=== PATIENT | male | born 1950 | race Caucasian/White ===

== ENCOUNTER 2017-09-19 01:51 | Emergency (ER) | payer BC, MEDICARE ==
[~2017-09-19] VITALS: Ht 165.1 cm; Wt 128.0 kg
[2017-09-19 02:23] LABS: AMORPHOUS SEDIMENT, URINE RARE; BILIRUBIN, URINE NEG (NEG); BLOOD, URINE MOD (NEG); GLUCOSE,URINE TRACE mg/dL (NEG); KETONE, URINE NEG (NEG); MUCUS URINE FEW /lpf (OCC); NITRITE,URINE NEG (NEG); PH, URINE 6.5 (5.0-8.5); SQUAMOUS EPITHELIAL CELL URINE <1 /hpf (0-5); URINE COLOR YELLOW (YELLW/STRAW); URINE LEUKOCYTE ESTERASE SMALL (NEG)
[2017-09-19] MEDS ORDERED: ASPI-183 PO (02:51)
[2017-09-19] MEDS ORDERED: BYST10TA2 PO (02:51)
[2017-09-19] MEDS ORDERED: ALLO100T PO (02:51)
[2017-09-19] MEDS ORDERED: LISI-515 PO (02:51)
[2017-09-19] MEDS ORDERED: TORS20TA PO (02:51)
[2017-09-19] MEDS ORDERED: NOVOLOGP2 SQ (02:51)
[2017-09-19] MEDS ORDERED: ONE-TAB14 PO (02:51)
[2017-09-19] MEDS ORDERED: VITA200013 PO (02:51)
[2017-09-19] MEDS ORDERED: SULFAMETHOXAZOLE-TRIMETHOPRIM DS 800-160 MG TAB PO ONE (03:00)
[2017-09-19] MEDS ORDERED: ACETAMINOPHEN 325 MG TAB PO ONE (03:00)
[2017-09-19] MEDS ORDERED: TYLE325T PO (03:50)
[2017-09-19] MEDS ORDERED: BACT800T5 PO (03:50)
--- NOTE | 2017-09-19 03:50 | PD ---
HPI Chief Complaint: Complaint Time Seen by Provider: 01:54 Travel History International Travel<30 days: No Contact w/Intl Traveler<30days: No Traveled to known affect area: No History of Present Illness HPI 67yo M presents to the ED with c/o urinary frequency, dysuria for 1 day. Said he had cystoscopy 1 week ago and was given cipro x2 doses. Denies any fever, chest pain, sob, n/v, abdominal pain, testicular pain, focal weakness or numbness. States he feels fullness in his bladder. PFSH Past Medical History High Cholesterol: Yes Congestive Heart Failure: Yes Diabetes: Yes Patient Takes Glucophage: No Diminished Hearing: No Hypertension: Yes Past Surgical History Eye Surgery: Yes (bt eye) Genitourinary Surgery: Yes (penile implant) Tonsillectomy: Yes Social History Alcohol Use: Yes (occ) Tobacco Use: No Substance Use: Yes (pot weekly) Allergies-Medications (Allergen,Severity, Reaction): Coded Allergies: No Known Allergies (Verified Allergy, Unknown, 09/19/17) Reported Meds & Prescriptions Reported Meds & Active Scripts Active Tylenol (Acetaminophen) 325 Mg Tab 325 Mg PO Q4H PRN Bactrim DS (Sulfamethoxazole-Trimethoprim) 800-160 Mg Tab 1 Tab PO BID Reported Torsemide 20 Mg Tab 20 Mg PO DAILY Bystolic (Nebivolol) 10 Mg Tab 10 Mg PO DAILY Novolog Inj (Insulin Aspart) 1,000 Unit/10 Ml Vial 35 Units SQ BID One Daily Multivitamin (Multivitamin) 1 Each Tablet 1 Tab PO HS Aspirin 325 Mg Tab 325 Mg PO DAILY Vitamin D (Cholecalciferol) 2,000 Unit Cap 1,000 Mg PO BID Allopurinol 100 Mg Tab 100 Mg PO BID Lisinopril 20 Mg Tab 20 Mg PO BID Review of Systems Except as stated in HPI: all other systems reviewed are Neg Physical Exam Narrative GENERAL: 67yo M not in distress. SKIN: Focused skin assessment warm/dry. HEAD: Atraumatic. Normocephalic. EYES: Pupils equal and round. No scleral icterus. No injection or drainage. CARDIOVASCULAR: Regular rate and rhythm. No murmur appreciated. RESPIRATORY: No accessory muscle use. Clear to auscultation. Breath sounds equal bilaterally. GASTROINTESTINAL: Abdomen soft, non-tender, nondistended. No rebound tenderness or guarding. MUSCULOSKELETAL: No obvious deformities. No clubbing. No cyanosis. No edema. NEUROLOGICAL: Awake and alert. No obvious cranial nerve deficits. Motor grossly within normal limits. Normal speech. PSYCHIATRIC: Appropriate mood and affect; insight and judgment normal. Data Data Orders Orders Urinalysis - C+S If Indicated (09/19/17 01:55) Urine Culture (09/19/17 01:55) Ed Poc Ultrasound (09/19/17 ) Sulfamet-Trimeth Ds 800-160 Mg (Bactrim (09/19/17 03:00) Acetaminophen (Tylenol) (09/19/17 03:00) Ed Discharge Order (09/19/17 03:50) Labs Laboratory Tests Test 09/19/17 01:55 Urine Color YELLOW Urine Turbidity HAZY Urine pH 6.5 Urine Specific [place] 1.013 Urine Protein 300 mg/dL Urine Glucose (UA) TRACE mg/dL Urine Ketones NEG mg/dL Urine Occult Blood MOD Urine Nitrite NEG Urine Bilirubin NEG Urine Urobilinogen LESS THAN 2.0 MG/DL Urine Leukocyte Esterase SMALL Urine RBC /hpf Urine WBC 20 /hpf Urine Squamous Epithelial Cells <1 /hpf Urine Amorphous Sediment RARE Urine Mucus FEW /lpf Microscopic Urinalysis Comment CULTURE INDICATED MDM Medical Decision Making Medical Screen Exam Complete: Yes Emergency Medical Condition: Yes Differential Diagnosis Cystitis vs. nephrolithiasis Narrative Course 67yo M with urinary frequency and dysuria for 1 day. Pt is able to urinate but feels that he is urinating more. Some pressure in bladder but no abdominal pain. UA showed moderate blood. WBC 20. Pt given acetaminophen and 1 dose of bactrim here. Pt reevaluated at bedside and feels better. He is well appearing. Return precautions given. Procedures Procedure Narrative Emergency department urinary tract ultrasound was performed with patient consent. Curvilinear probe was used in the transverse and sagittal views in suprapubic region without evidence of urinary retention. Diagnosis Primary Impression: UTI (urinary tract infection) Qualified Codes: N39.0 - Urinary tract infection, site not specified; R31.9 - Hematuria, unspecified Patient Instructions: General Instructions Departure Forms: Tests/Procedures Additional Instructions: Please follow up with your urologist in 3-7 days. Return to the ED if you are unable to urinate, have fever, abdominal pain, vomiting or other concerning symptoms. Med/Other Pt SpecificInfo: Prescription(s) given Scripts Acetaminophen (Tylenol) 325 Mg Tab 325 MG PO Q4H Y for PAIN SCALE 1 TO 4, #20 TAB 0 Refills Prov: Fang Reyes DO 09/19/17 Sulfamethoxazole-Trimethoprim (Bactrim DS) 800-160 Mg Tab 1 TAB PO BID for Infection, #14 TAB 0 Refills Prov: Fang Reyes DO 09/19/17 Disposition: 01 DISCHARGE HOME Condition: Stable Fang Reyes DO Sep 19, 2017 03:50
== END 2017-09-19 04:00 | disposition home or self-care (01) ==
LOC: NEPC 01:51
DX: N39.0 Urinary tract infection, site not specified (principal); R31.9 Hematuria, unspecified; E11.9 Type 2 diabetes mellitus without complications; I10 Essential (primary) hypertension; I50.9 Heart failure, unspecified; E78.00 Pure hypercholesterolemia, unspecified; Z79.4 Long term (current) use of insulin; Z98.890 Other specified postprocedural states
CPT/HCPCS: 81001; 87086; 99283